=== PATIENT | female | born 1975 | race Caucasian/White ===

== ENCOUNTER 2017-12-27 15:07 | Emergency (ER) | payer OTHER ==
[2017-12-27 15:42] VITALS: BP 113/63
[2017-12-27] MEDS ORDERED: predniSONE TAB* 20 MG PO ONE (15:53)
[2017-12-27] MEDS ORDERED: Albuterol 2.5 MG/3 ML NEB.SOL* (0.083%) INH ONE (15:54)
--- NOTE | 2017-12-27 16:00 | UC ---
General HPI - HPI Summary HPI Summary: pt c/o being ill for about 2 weeks. it began with sinus congestion and fever. pt now c/o sinus pain that radiates into her upper teeth, sore throat and a bad cough. she has yellow sinus drainage with occasional blood streaks and some wheezing. pt has a hx of asthma. - History of Current Complaint Chief Complaint: UCGeneralIllness Stated Complaint: SORE THROAT, SINUSES Time Seen by Provider: 12/27/17 15:45 Hx Obtained From: Patient Hx Last Menstrual Period: [id number] Onset/Duration: Gradual Onset Timing: Constant Pain Intensity: 7 Aggravating: nothing Alleviating: nothing Associated Signs & Symptoms: Positive: Cough, SOB, Wheezing. Negative: Chest Pain, Fever - Allergy/Home Medications Allergies/Adverse Reactions: Allergies Allergy/AdvReac Type Severity Reaction Status Date / Time nitrofurantoin Allergy Rash Verified 12/27/17 15:30 [From Macrobid] Home Medications: Home Medications Aspirin [Adult Low Dose Aspirin EC] 81 mg PO 12/27/17 [History Confirmed ] Belimumab [Benlysta] 12/27/17 [History] Ferrous Sulfate [Iron] 12/27/17 [History] Hydroxychloroquine Sulfate [Plaquenil] 12/27/17 [History] Spiriva Inhaler DEVICE* [Tiotropium Inhaler DEVICE*] 12/27/17 [History] PMH/Surg Hx/FS Hx/Imm Hx - Additional Past Medical History Additional PMH: anemia Respiratory History: Asthma Psychological History: Anxiety - Surgical History Surgical History: Yes Surgery Procedure, Year, and Place: C SECTION, TUBAL LIGATION, GALL BLADDER REMOVAL, GASTRIC BYPASS - Social History Lives: With Family Alcohol Use: None Substance Use Type: None Smoking Status (MU): Heavy Every Day Tobacco Smoker Type: Cigarettes Amount Used/How Often: 1 PPD Household Exposure Type: Cigarettes - Immunization History Vaccination Up to Date: Yes Review of Systems Constitutional: Negative Skin: Negative Eyes: Negative ENT: Sore Throat, Nasal Discharge, Sinus Congestion, Sinus Pain/Tenderness Respiratory: Shortness Of Breath, Cough Cardiovascular: Negative Gastrointestinal: Negative Genitourinary: Negative Motor: Negative Neurovascular: Negative Musculoskeletal: Negative Neurological: Negative Psychological: Negative Is Patient Immunocompromised?: No All Other Systems Reviewed And Are Negative: Yes Physical Exam Triage Information Reviewed: Yes Appearance: Well-Appearing Vital Signs: Initial Vital Signs Temp 98.3 F 12/27/17 15:29 Pulse 85 12/27/17 15:29 Resp 22 12/27/17 15:29 BP 113/63 12/27/17 15:29 Pulse Ox 94 12/27/17 15:29 Vital Signs Reviewed: Yes Eyes: Positive: Conjunctiva Clear ENT: Positive: Pharyngeal erythema, Nasal congestion, TMs normal, Sinus tenderness, Uvula midline. Negative: Nasal drainage, Tonsillar swelling, Tonsillar exudate, Trismus, Muffled voice, Hoarse voice Neck: Positive: Supple, Nontender, No Lymphadenopathy Respiratory: Positive: No respiratory distress, Decreased breath sounds, Wheezing, Other: - cough is congested Cardiovascular: Positive: RRR, No Murmur Abdomen Description: Positive: Nontender, No Organomegaly, Soft Bowel Sounds: Positive: Present Musculoskeletal: Positive: ROM Intact Neurological: Positive: Alert Psychological: Positive: Age Appropriate Behavior Skin Exam: Normal Re-Evaluation - Re-Evaluation Second Eval Re-Evaluation Time: 16:29 - improved aeration and less wheezing. sat still 94%. Course/Dx - Differential Dx - Multi-Symptom Provider Diagnoses: sinusitis. asthma flare Discharge - Discharge Plan Condition: Stable Disposition: HOME Prescriptions: Albuterol 2.5MG/3ML (0.083%)* [Ventolin 2.5 MG/3 ML NEB.CANDACE*] 2.5 mg INH Q6H #1 box Amoxicillin/Clavulanate TAB* [Augmentin TAB 875*] 875 mg PO BID 10 Days #20 tab predniSONE TAB* [Deltasone TAB*] 40 mg PO DAILY 4 Days #8 tab Patient Education Materials: Sinusitis (ED), Asthma (DC) Referrals: Nellie Li MD [Primary Care Provider] - 5 Days
== END 2017-12-27 16:40 | disposition home or self-care (01) ==
LOC: UCCORT 15:07
DX: J32.9 Chronic sinusitis, unspecified (principal); J45.901 Unspecified asthma with (acute) exacerbation; F41.9 Anxiety disorder, unspecified; Z79.82 Long term (current) use of aspirin; Z88.1 Allergy status to other antibiotic agents; F17.210 Nicotine dependence, cigarettes, uncomplicated
CPT/HCPCS: 99212; G0463; J7512

== ENCOUNTER 2017-12-30 15:37 | Emergency (ER) | payer OTHER ==
[2017-12-30 15:54] VITALS: BP 121/72
--- NOTE | 2017-12-30 16:04 | UC ---
Dental HPI - HPI Summary HPI Summary: 42 year old female with concerns of thrush she thinks she has thrush. she c/o a burning sensation on the tongue and in the throat. she also has a coating on the tongue. she was here the other day and was prescribed Augmentin because the provider thought she had a sinus infection and the throat and tongue irritation was from post nasal drip. the symptoms have gotten worse since she started the Augmentin. Also uses asthma meds that can cause thrush in the past and it feels the same. no choking on food. [ End ] - History of Current Complaint Chief Complaint: UCGeneralIllness Stated Complaint: MOUTH PAIN Time Seen by Provider: 12/30/17 16:01 Hx Obtained From: Patient Hx Last Menstrual Period: [id number] Onset/Duration: Sudden Onset Pain Intensity: 6 - Allergies/Home Medications Allergies/Adverse Reactions: Allergies Allergy/AdvReac Type Severity Reaction Status Date / Time nitrofurantoin Allergy Rash Verified 12/30/17 15:52 [From Macrobid] Home Medications: Home Medications Escitalopram Oxalate [Lexapro 20 mg] 20 mg PO DAILY 12/30/17 [History Confirmed 12/30/17] PMH/Surg Hx/FS Hx/Imm Hx Previously Healthy: Yes - Surgical History Surgical History: Yes Surgery Procedure, Year, and Place: C SECTION, TUBAL LIGATION, GALL BLADDER REMOVAL, GASTRIC BYPASS - Family History Known Family History: Positive: None - Social History Occupation: Employed Full-time Lives: With Family Alcohol Use: None Substance Use Type: None Smoking Status (MU): Heavy Every Day Tobacco Smoker Type: Cigarettes Amount Used/How Often: 1 PPD Household Exposure Type: Cigarettes - Immunization History Vaccination Up to Date: Yes Review of Systems ENT: Sore Throat, Sinus Congestion, Sinus Pain/Tenderness, Other - white coating in the throat/tongue All Other Systems Reviewed And Are Negative: Yes Physical Exam Triage Information Reviewed: Yes Appearance: Well-Appearing, No Pain Distress, Well-Nourished Vital Signs: Initial Vital Signs Temp 98.4 F 12/30/17 15:48 Pulse 64 12/30/17 15:48 Resp 12 12/30/17 15:48 BP 121/72 12/30/17 15:48 Pulse Ox 99 12/30/17 15:48 Vital Signs Reviewed: Yes Eye Exam: Normal ENT Exam: Normal ENT: Positive: Sinus tenderness, Other - white coating to the tongue , mild injection of oropharynx Dental Exam: Normal Neck exam: Normal Neck: Positive: 1 Respiratory Exam: Normal Cardiovascular Exam: Normal Musculoskeletal Exam: Normal Neurological Exam: Normal Psychological Exam: Normal Skin Exam: Normal Dental Complaint Course/Dx - Course Course Of Treatment: she prefers the swish and swallow and RTO if any concerns of note the sinus infection is resolving and the lungs are improved as well per patient - Differential Dx/Diagnosis Differential Diagnosis/Dx: Tonsillitis Provider Diagnoses: Oral candidiasis Discharge - Discharge Plan Condition: Good Disposition: HOME Prescriptions: Nystatin SUSPENSION ORAL SYR* 100,000 units PO QID 5 Days #1 bottle Patient Education Materials: Oral Candidiasis (ED) Referrals: Nellie Li MD [Primary Care Provider] - If Needed
== END 2017-12-30 16:14 | disposition home or self-care (01) ==
LOC: UCCORT 15:37
DX: B37.0 Candidal stomatitis (principal); Z88.1 Allergy status to other antibiotic agents; F17.210 Nicotine dependence, cigarettes, uncomplicated
CPT/HCPCS: 99211; G0463

== ENCOUNTER 2018-07-24 14:00 | Emergency (ER) | payer OTHER ==
[2018-07-24 15:51] VITALS: BP 119/60
--- NOTE | 2018-07-24 16:14 | UC ---
Complaint Female HPI - HPI Summary HPI Summary: Patient has been on Keflex for teeth issues. She has developed vaginal discharge and itching of the private parts. - History Of Current Complaint Chief Complaint: UCGU Stated Complaint: PERSONAL Time Seen by Provider: 07/24/18 15:59 Hx Obtained From: Patient Hx Last Menstrual Period: 07/02/18 ?: No Onset/Duration: Sudden Onset, Lasting Days Timing: Constant Severity Initially: Mild Severity Currently: Moderate Pain Intensity: 0 Aggravating Factor(s): Urination Alleviating Factor(s): Nothing Associated Signs And Symptoms: Positive: Vaginal Discharge - Allergies/Home Medications Allergies/Adverse Reactions: Allergies Allergy/AdvReac Type Severity Reaction Status Date / Time nitrofurantoin Allergy Rash Verified 07/24/18 15:52 [From Macrobid] Home Medications: Home Medications cephALEXin [Keflex] 500 mg PO TID 07/24/18 [History Confirmed 07/24/18] PMH/Surg Hx/FS Hx/Imm Hx Previously Healthy: Yes - Surgical History Surgical History: Yes Surgery Procedure, Year, and Place: C SECTION, TUBAL LIGATION, GALL BLADDER REMOVAL, GASTRIC BYPASS 2013, 3 teeth removed 07/12/18 - Family History Known Family History: Negative: Cardiac Disease, Hypertension - Social History Alcohol Use: None Substance Use Type: None Smoking Status (MU): Heavy Every Day Tobacco Smoker Type: Cigarettes Amount Used/How Often: 1 PPD Household Exposure Type: Cigarettes - Immunization History Vaccination Up to Date: Yes Review of Systems Constitutional: Negative Skin: Negative Eyes: Negative ENT: Negative Respiratory: Negative Cardiovascular: Negative Gastrointestinal: Negative Genitourinary: Vaginal/Penile Itching, Vaginal/Penile Discharge Motor: Negative Neurovascular: Negative Musculoskeletal: Negative Neurological: Negative Psychological: Negative Is Patient Immunocompromised?: No All Other Systems Reviewed And Are Negative: Yes Physical Exam Triage Information Reviewed: Yes Appearance: Well-Appearing, Well-Nourished, Pain Distress Vital Signs: Initial Vital Signs Temp 98.4 F 07/24/18 15:40 Pulse 76 07/24/18 15:40 Resp 18 07/24/18 15:40 BP 119/60 07/24/18 15:40 Pulse Ox 98 07/24/18 15:40 Vital Signs Reviewed: Yes Eye Exam: Normal ENT Exam: Normal Dental Exam: Normal Neck exam: Normal Respiratory Exam: Normal Respiratory: Positive: Chest non-tender, Lungs clear, Normal breath sounds Cardiovascular Exam: Normal Cardiovascular: Positive: RRR, No Murmur, Pulses Normal Abdominal Exam: Normal Pelvic Exam: Positive: Other - redness of vulva noted, internal pelvic deferred Musculoskeletal Exam: Normal Neurological Exam: Normal Psychological Exam: Normal Skin Exam: Normal Complaint Female Dx - Course Course Of Treatment: hx obtained, exam performed, meds reviewed, treated for vaginitis secondary to ABX use - Differential Dx/Diagnosis Differential Diagnosis/HQI/PQRI: Urinary Tract Infection, Other - vaginitis Provider Diagnoses: vaginitis Discharge - Sign-Out/Discharge Documenting (check all that apply): Patient Departure All imaging exams completed and their final reports reviewed: No Studies - Discharge Plan Condition: Stable Disposition: HOME Prescriptions: Fluconazole [Diflucan] 150 mg PO ONCE #1 tablet Patient Education Materials: Vaginitis (ED) Referrals: Nellie Li MD [Primary Care Provider] - Additional Instructions: 1. take the table as prescribed, you have 1 refill if needed after 1 week 2. you can use coconut oil topically for itching and irritation. 3. follow up if not improving - Billing Disposition and Condition Condition: STABLE Disposition: Home
== END 2018-07-24 16:19 | disposition home or self-care (01) ==
LOC: UCCORT 14:00
DX: N76.0 Acute vaginitis (principal); Z88.1 Allergy status to other antibiotic agents; F17.210 Nicotine dependence, cigarettes, uncomplicated
CPT/HCPCS: 99212; G0463

== ENCOUNTER 2019-02-28 14:02 | Emergency (ER) | payer OTHER ==
[2019-02-28 14:49] VITALS: BP 134/54
--- NOTE | 2019-02-28 15:09 | UC ---
Complaint Female HPI - HPI Summary HPI Summary: Pt c/o genital swelling, redness, thick white discharge, tenderness X 2 days. Pt began amox 500 mg PO on February 21 for dental procedure. - History Of Current Complaint Chief Complaint: UCGU Stated Complaint: PERSONAL Time Seen by Provider: 02/28/19 14:49 Hx Obtained From: Patient Hx Last Menstrual Period: 02/16/19 ?: No Onset/Duration: Gradual Onset, Lasting Days, Still Present, Worse Since - osnet Timing: Constant Severity Initially: Mild Severity Currently: Moderate Pain Intensity: 0 Character: Dull, Burning Aggravating Factor(s): Urination Alleviating Factor(s): Nothing Associated Signs And Symptoms: Positive: Vaginal Discharge, Genital Swelling - Risk Factors Ectopic Risk Factor: Negative Ovarian Torsion Risk Factor: Negative - Allergies/Home Medications Allergies/Adverse Reactions: Allergies Allergy/AdvReac Type Severity Reaction Status Date / Time nitrofurantoin Allergy Rash Verified 02/28/19 14:49 [From Macrobid] Home Medications: Home Medications Ibuprofen TAB* [Motrin TAB* 800 MG] 800 mg PO Q12H PRN 02/28/19 [History Confirmed 02/28/19] PMH/Surg Hx/FS Hx/Imm Hx Previously Healthy: Yes - Surgical History Surgical History: Yes Surgery Procedure, Year, and Place: C SECTION, TUBAL LIGATION, GALL BLADDER REMOVAL, GASTRIC BYPASS 2012, 3 teeth removed 07/12/18, 7 teeth removed 02/21/19 - Family History Known Family History: Negative: Cardiac Disease, Hypertension - Social History Occupation: Employed Full-time Lives: With Family Alcohol Use: None Substance Use Type: None Smoking Status (MU): Heavy Every Day Tobacco Smoker Type: Cigarettes Amount Used/How Often: 1 PPD Have You Smoked in the Last Year: Yes Household Exposure Type: Cigarettes - Immunization History Vaccination Up to Date: Yes Review of Systems All Other Systems Reviewed And Are Negative: Yes Constitutional: Positive: Negative Skin: Positive: Negative Eyes: Positive: Negative ENT: Positive: Negative Respiratory: Positive: Negative Cardiovascular: Positive: Negative Gastrointestinal: Positive: Negative Genitourinary: Positive: Vaginal/Penile Burning, Vaginal/Penile Itching, Vaginal /Penile Discharge Motor: Positive: Negative Neurovascular: Positive: Negative Musculoskeletal: Positive: Negative Neurological: Positive: Negative Psychological: Positive: Negative Is Patient Immunocompromised?: No Physical Exam Triage Information Reviewed: Yes Appearance: Well-Appearing, Obese Vital Signs: Initial Vital Signs Temp 98.3 F 02/28/19 14:39 Pulse 78 02/28/19 14:39 Resp 18 02/28/19 14:39 BP 134/54 02/28/19 14:39 Pulse Ox 100 02/28/19 14:39 Vital Signs Reviewed: Yes Eye Exam: Normal ENT Exam: Normal Neck exam: Normal Respiratory Exam: Normal Cardiovascular Exam: Normal Abdominal Exam: Normal Abdomen Description: Positive: Nontender Pelvic Exam: Positive: Other - pt declined pelvic exam and stated she "knows she has a yeast infection". Musculoskeletal Exam: Normal Neurological Exam: Normal Psychological Exam: Normal Skin Exam: Normal Complaint Female Dx - Differential Dx/Diagnosis Differential Diagnosis/HQI/PQRI: Sexually Transmitted Disease, Urinary Tract Infection, Other - vaginitis Provider Diagnosis: Vaginitis Discharge - Sign-Out/Discharge Documenting (check all that apply): Patient Departure All imaging exams completed and their final reports reviewed: No Studies - Discharge Plan Condition: Stable Disposition: HOME Prescriptions: Fluconazole 150 MG TAB* [Diflucan 150 MG TAB*] 150 mg PO DAILY #3 tablet Miconazole Nitrate [Monistat 3] 1 each VG BEDTIME #1 kit Patient Education Materials: Vaginitis (ED) Referrals: Nellie Li MD [Primary Care Provider] - If Needed - Billing Disposition and Condition Condition: STABLE Disposition: Home
== END 2019-02-28 15:15 | disposition home or self-care (01) ==
LOC: UCCORT 14:02
DX: N76.0 Acute vaginitis (principal); F17.210 Nicotine dependence, cigarettes, uncomplicated; Z88.8 Allergy status to other drugs, medicaments and biological substances
CPT/HCPCS: 81003; 87077; 87086; 87186; 99212; G0463